=== PATIENT | male | born 2000 | race Caucasian/White ===

== ENCOUNTER 2021-09-19 11:18 | Outpatient (REF) | payer OTHER, SELFPAY | END 2021-09-19 11:19 | disposition home or self-care (01) | LOC: HO.LAB 11:18 | PROVIDERS: PCP Internal Medicine; Visit Provider Internal Medicine | DX: Z20.822 Contact with and (suspected) exposure to COVID-19 (principal) | CPT/HCPCS: C9803; U0003; U0005 ==

== ENCOUNTER 2021-09-24 11:06 | Outpatient (REF) | payer OTHER, SELFPAY | END 2021-09-24 11:07 | disposition home or self-care (01) | LOC: HO.LAB 11:06 | PROVIDERS: Visit Provider Internal Medicine | DX: Z20.822 Contact with and (suspected) exposure to COVID-19 (principal) | CPT/HCPCS: C9803; U0003; U0005 ==

== ENCOUNTER 2021-09-30 12:45 | Outpatient (REF) | payer OTHER, SELFPAY | END 2021-09-30 12:46 | disposition home or self-care (01) | LOC: HO.LAB 12:45 | PROVIDERS: Visit Provider Internal Medicine | DX: Z20.822 Contact with and (suspected) exposure to COVID-19 (principal) | CPT/HCPCS: C9803; U0003; U0005 ==

== ENCOUNTER 2023-04-08 18:41 | Emergency (ER) | payer OTHER, SELFPAY ==
--- NOTE | ~2023-04-08 | XR_ITS ---
EXAMINATION: XR KNEE, RIGHT CLINICAL INFORMATION: Pain COMPARISON: None available. TECHNIQUE: Two views of the right knee. FINDINGS: Bones and soft tissues are normal. No fracture or joint effusion. Alignment is anatomic. Joint spaces are well maintained. No abnormal soft tissue calcification. XR/XR knee RT 2V IMPRESSION: Normal right knee.
--- NOTE | ~2023-04-08 | XR_ITS ---
EXAMINATION: XR ELBOW, RIGHT CLINICAL INFORMATION: Pain COMPARISON: None available. TECHNIQUE: AP, lateral, and oblique views of the right elbow. FINDINGS: The bones and soft tissues are normal. No fracture or joint effusion. Alignment is anatomic. Joint spaces are maintained. Punctate speckled foreign bodies in the soft tissues of the forearm laterally. XR/XR elbow RT min 3V IMPRESSION: 1. No acute fracture or dislocation. 2. Punctate speckled foreign bodies in the soft tissues of the forearm laterally.
--- NOTE | ~2023-04-08 | XR_ITS ---
EXAMINATION: XR KNEE, LEFT CLINICAL INFORMATION: Pain COMPARISON: None available. TECHNIQUE: Two views of the left knee. FINDINGS: Bones and soft tissues are normal. No fracture or joint effusion. Alignment is anatomic. Joint spaces are well maintained. No abnormal soft tissue calcification. XR/XR knee LT 2V IMPRESSION: Normal left knee.
[2023-04-08 18:50] VITALS: BP 125/72; PULSE 85; RESP 16; TEMP 36.6; O2SAT 94; BMI 22.7
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
[2023-04-08] MEDS: Diphth,Pertus(ACell),Tet Adult 0.5 ML SYRINGE IM (20:47)
[2023-04-08] MEDS: Bacitracin Oint 14 GM TUBE 4 APPL TOPICAL (20:47)
[2023-04-08] MEDS: Ibuprofen 400 MG TABLET PO (20:48)
== END 2023-04-08 21:18 | disposition home or self-care (01) ==
PROVIDERS: Emergency Provider Student in an Organized Health Care Education/Training Program; PCP Internal Medicine
DX: S50.311A Abrasion of right elbow, initial encounter (principal); S80.212A Abrasion, left knee, initial encounter; S80.211A Abrasion, right knee, initial encounter; S60.512A Abrasion of left hand, initial encounter; S60.511A Abrasion of right hand, initial encounter; S50.811A Abrasion of right forearm, initial encounter; S80.00XA Contusion of unspecified knee, initial encounter; V28.09XA Other motorcycle driver injured in noncollision transport accident in nontraffic accident, initial encounter; Y93.89 Activity, other specified; Y92.410 Unspecified street and highway as the place of occurrence of the external cause; Y99.9 Unspecified external cause status
CPT/HCPCS: 73080; 73560; 90471; 90715; 99283; 99284

== ENCOUNTER 2024-09-23 15:30 | Emergency (ER) | payer OTHER, SELFPAY ==
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
[2024-09-23 15:49] VITALS: BP 130/80; PULSE 88; O2SAT 100
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
[2024-09-23 16:06] VITALS: BP 154/77; PULSE 78; RESP 16; TEMP 37.2
[2024-09-23 16:08] VITALS: BP 130/80; PULSE 88; RESP 20; O2SAT 100; BMI 23.7
[2024-09-23] MEDS: Acetaminophen 325 MG TABLET 975 MG PO (17:15)
[2024-09-23] MEDS: Lidocaine 4 % Patch ADH..PATCH 1 PATCH TRANSDERMA (17:17)
[2024-09-23 18:13] VITALS: BP 130/80; PULSE 88; RESP 20; TEMP -17.7; TEMP 0; O2SAT 100
== END 2024-09-23 18:22 | disposition home or self-care (01) ==
PROVIDERS: Emergency Provider Emergency Medicine
DX: S06.0X0A Concussion without loss of consciousness, initial encounter (principal); S13.4XXA Sprain of ligaments of cervical spine, initial encounter; V03.131A Pedestrian on standing electric scooter injured in collision with car, pick-up or van in traffic accident, initial encounter; Y93.89 Activity, other specified; Y92.414 Local residential or business street as the place of occurrence of the external cause; Y99.9 Unspecified external cause status
CPT/HCPCS: 70450; 72100; 72125; 73552; 73564; 99283; 99284

== ENCOUNTER 2024-12-27 09:09 | Outpatient (AMB) | payer OTHER, SELFPAY ==
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
[2024-12-27 09:14] VITALS: BP 126/80; PULSE 86; O2SAT 100
== END 2024-12-27 09:46 | disposition home or self-care (01) ==
PROVIDERS: Visit Provider Internal Medicine
DX: M79.605 Pain in left leg (principal); V89.2XXS Person injured in unspecified motor-vehicle accident, traffic, sequela; M54.50 Low back pain, unspecified; Z04.3 Encounter for examination and observation following other accident